=== PATIENT | female | born 1930 | race Caucasian/White ===

== ENCOUNTER 2016-04-10 21:34 | Inpatient (IN) | payer MEDICAID, MEDICARE ==
[2016-04-10] MEDS ORDERED: Sodium Chloride 0.9% 1,000 ML IV ONE (21:55)
--- NOTE | 2016-04-10 22:06 | ED Physician Chart ---
Chief Complaint/HPI - Patient Information Date Seen:: 04/10/16 Time Seen:: 21:50 Chief Complaint:: vomiting History of Present Illness:: Pt. with hx of DM, CHF, and CABG comes in with vomiting. Pt. was hypoglycemic, got insulin in field. Gluc. now 55. Allergies:: PCN Vitals:: 97.6 76 20 218.70 97% RA Historian:: EMS, Family Member Review of Systems - Review of Systems General/Constitutional: No fever, No chills Skin: No skin lesions Eyes: No loss of vision ENT: No earache, No sore throat Neck: No neck pain Cardio Vascular: No chest pain, No palpitations Pulmonary: No SOB GI: Nausea, Vomiting, No diarrhea G/U: No dysuria Endocrine: No polyuria Psychiatric: No prior psych history Hematopoietic: No bruising Neurological: No syncope Past Medical History - Past Medical History Past Medical History: HTN, DM, CAD, CHF Family History: None Social History: Non Smoker, No Alcohol Surgical History: other (CABG none others known.) Medication Reviewed:: carvdilol, hydralazine, isosorbide, lasix, clonidine, vits, meaclopramide, tramdol, insulin Family Medical History - Family Member Mother History Unknown: Yes Physical Exam - Physical Examination General/Constitutional: Awake, Well-developed, well-nourished, Alert, No distress Head: Atraumatic Eyes: Lids, conjuctiva normal, PERRL, EOMI Skin: Nl inspection ENMT: External ears, nose nl, TM canals nl, Nasal exam nl, Lips, teeth, gums nl Neck: Nontender, Full ROM w/o pain Respiratory: Nl effort/Exclusion, Clear to Auscultation, No Wheeze/Rhonchi/Rales Cardio Vascular: RRR, No murmur, gallop, rubs GI: No tenderness/rebounding/guarding : No CVA tenderness Extremities: No tenderness or effusion, Full ROM Neuro/Psych: Judgement/insight normal, No focal deficits Labs/Radiology/EKG Results - Lab Results Results: cardiomegally. Cannot r/o infiltrate, effusion R base, R CPA. EKG shows atrial paced rhythm at 60. NSSTTWC. CT per rad.: "no free fluid, no hydro, ASVD, fibroid uterus, diverticulosis, fecal impaction in Recto-sigmoid. Pt. states she had nl. BM today. Rectal exam was unremarkable. There was a little soft stool, but no impaction palpable. Hemoccult neg. CMP shows K of 2.9 and Gluc. of 55. BNP = 680 Trop is normal. Ammonia is 36 UDS is neg. WBC is 12.6 and H/H = 11.2/33.4 EtOH negligible Amylase and lipase normal. UA: RBC 0 - 2, WBC 2 - 5. Glucose 100. ED Septic Shock - . Is Septic Shock (SBP<90, OR Lactate>4 mmol\\L) present?: No Reassessment (Disposition) - Reassessment Reassessment Condition:: Unchanged - Diagnosis Diagnosis:: Dx: 1. Acute Hypoglycemic Episode 2. Acute vomiting 3. Pneumonia 4. Constipation - Aftercare/Follow up Instructions Aftercare/Follow-Up Instructions:: Counseled pt & family regarding lab results/ diagnosis & need follow up - Patient Disposition Discharge/Transfer:: Acute Care w/in this hosp Accepting Physician:: Dr. Knutson. Time Called:: 2350 Time Responded:: 02:54 Discussion with Medical Provider:: [id number] Cuellar. He was told Dr. Knutson was called. Dr. Cuellar will admit and he is giving orders. Condition at Disposition:: Improved ED Discharge Plan - Patient Disposition Admit/Discharge/Transfer: Acute Care w/in this hosp Condition at Disposition: Guarded
[2016-04-10] MEDS ORDERED: cefTRIAXone 1 GM in Sodium Chloride 0.9% 50 ML IV ONE (22:08)
[2016-04-10 23:22] LABS: % BASOPHILS 0.4 % (0.0-2.0); % EOSINOPHILS 1.3 % (0.0-5.0); % LYMPHOCYTES 11.8 % (20.0-50.0); % MONOCYTES 5.9 % (2.0-10.0); % NEUTROPHILS 80.6 % (40.0-80.0); HEMATOCRIT 33.4 % (35.0-45.0); HEMOGLOBIN 11.2 gm/dL (11.7-16.1); MEAN CELL VOLUME 83.9 fl (81-100); MEAN CORPUSCULAR HGB CONC 33.4 pg (28.0-36.0); MEAN PLATELET VOLUME 6.5 fl; NEUTROPHILE ABSOLUTE 10.1 Th/cmm (1.8-8.0); PLATELET COUNT 327 Th/cmm (150-400); RED BLOOD COUNT 3.99 Mil/cmm (3.80-5.20); RED CELL DISTRIBUTION WIDTH 12.6 % (11.5-20.0); WHITE BLOOD COUNT 12.6 Th/cmm (4.8-10.8)
[2016-04-10 23:27] LABS: AMPHETAMINE URINE NEGATIVE (NEGATIVE); BARBITURATES URINE NEGATIVE (NEGATIVE)
[2016-04-10 23:38] LABS: ALKALINE PHOSPHATASE 57 U/L (34-104); AMYLASE SERUM 86 U/L (29-103); ANION GAP 10.8 (7.0-16.0); BILIRUBIN,TOTAL 0.4 mg/dL (0.3-1.0); BUN - UREA NITROGEN 43 mg/dL (7-25); BUN/CREATININE RATIO 13.4; CALCIUM SERUM 9.5 mg/dL (8.6-10.3); CARBON DIOXIDE 30.1 mEq/L (21.0-31.0); CHLORIDE 97 mEq/L (98-107); CREATININE - SERUM 3.2 mg/dL (0.6-1.2); GLUCOSE 55 mg/dL (70-105); LIPASE 77 U/L (11-82); SGOT 18 U/L (13-39); SGPT/ALT 6 U/L (7-52); SODIUM SERUM 135 mEq/L (136-145)
[2016-04-10 23:44] LABS: POTASSIUM SERUM 2.9 mEq/L (3.5-5.1)
[2016-04-10 23:51] LABS: CREATINE KINASE MB 1.3 ng/mL (0.6-6.3)
[2016-04-10 23:51] LABS: URINE BILIRUBIN NEGATIVE (NEGATIVE); URINE COLOR YELLOW; URINE GLUCOSE (UA) 100 mg/dL (NEGATIVE); URINE KETONE NEGATIVE (NEGATIVE)
[2016-04-10 23:52] LABS: URINE BLOOD NEGATIVE (NEGATIVE); URINE PROTEIN >300 mg/dL (NEGATIVE); URINE UROBILINOGEN 0.2 E.U./dL (0.2 - 1.0)
[2016-04-10 23:54] LABS: URINE BACTERIA FEW /hpf (NONE SEEN); URINE EPITHELIAL CELLS MODERATE /lpf (FEW); URINE RBC 0-2 /hpf (0-5)
[2016-04-11 00:11] LABS: INR 0.95 (0.5-1.4); PROTHROMBIN TIME (TEST) 9.4 SECONDS (9.5-11.5)
[2016-04-11] MEDS ORDERED: Dextrose 10% 1,000 ML IV SCH (03:15)
[2016-04-11] MEDS ORDERED: Dextrose 10% 1,000 ML IV ONE (04:23)
[2016-04-11] MEDS ORDERED: INSULIN ASPART SLIDING SCALE 100 UNITS/ML UNIT SUBQ SCH (08:00)
--- NOTE | 2016-04-11 11:30 | Diagnostic Imaging Report ---
Portable chest x-ray HISTORY: Pneumonia Prior exams are not available for comparison. The heart is enlarged. Atherosclerotic calcification seen through the aorta. Cardiac pacemaker lead wires project over the right atrium and right ventricle. Density noted in the left lower hemithorax suggesting a small effusion. There is suggestion of pulmonary vascular redistribution consistent with an element of congestive heart failure. No koki pulmonary edema. IMPRESSION: 1. Cardiomegaly along with changes suggesting a degree of congestive heart failure without koki pulmonary edema. 2. Density left lower hemithorax suggesting a small pleural effusion 3. Cardiac pacemaker lead wires
--- NOTE | 2016-04-11 11:32 | Diagnostic Imaging Report ---
CT scan abdomen and pelvis without intravenous contrast HISTORY: Pain, vomiting Total DLP equals 385 CTDI equals 8.3 Axial sections were obtained from the xiphoid process down to the pubic symphysis. Limited sections through the lower chest demonstrate cardiomegaly. Artifact associated with pacemaker lead wires noted. There is a 3 mm calcified nodule within the left lower lobe of the lung consistent with old granulomatous disease. The liver exhibits a normal size and contour. A punctate calcification is seen in the left lobe most likely related to old inflammatory disease. No other focal lesions. The spleen appears normal. No focal amenities seen within the pancreas. Extensive atherosclerotic vascular calcification noted. No focal renal lesions. No hydronephrosis. The exam of the pelvis demonstrates preservation of normal fat planes. No abnormal soft tissue masses or abnormal fluid collections. There is a distended air and stool-filled lower sigmoid colon and rectum. Diverticula scattered throughout the descending and sigmoid colon. IMPRESSION: 1. Somewhat distended stool-filled lower sigmoid colon and rectum 2. Diverticulosis 3. Extensive atherosclerotic vascular changes 4. Cardiomegaly 5. Small calcified nodule within the left lower lobe of the lung consistent with old granulomatous disease
[2016-04-11] MEDS ORDERED: Azithromycin 500 MG in Sodium Chloride 0.9% 250 ML IV ONE (12:28)
[2016-04-11] MEDS ORDERED: D5-0.45NS 1,000 ML IV SCH ×2 (13:00→19:45)
[2016-04-11] MEDS: INSULIN ASPART SLIDING SCALE 100 UNITS/ML UNIT SUBQ SCH ×3 (13:12→20:30)
[2016-04-11] MEDS: cefTRIAXone 1 GM in Sodium Chloride 0.9% 50 ML IV SCH (13:23)
[2016-04-11] MEDS ORDERED: Azithromycin 250 MG in Sodium Chloride 0.9% 250 ML IV ONE (14:00)
[2016-04-11] MEDS ORDERED: Non-Formulary Item 1 EA (Carvedilol [Carvedilol] 25 MG) PO SCH (17:00)
[2016-04-11] MEDS ORDERED: Non-Formulary Item 1 EA (Clonidine Hcl [Clonidine Hcl] 0.2 MG) PO SCH (17:00)
--- NOTE | 2016-04-11 22:04 | Admit Criteria Form ---
Admit Criteria Forms - Admit Criteria Diagnosis: VOMITING Clinical Indications for Admission to Inpatient Care ( Place 'X' for any and all applicable criteria): Admission is indicated for ANY ONE of the following(1)(2)(3): [ X]I. Inpatient admission required rather than observation care because of ANY ONE of the following: [ ]i) Hemodynamic instability that is severe or persistent [ ]ii) Vomiting that is severe or persistent [ X]iii) Severe electrolyte abnormalities requiring inpatient care [ ]iv) Severe pain requiring acute inpatient management [ ]v) High fever or infection requiring inpatient admission as indicated by ANY ONE of the following(7)(8): [ ]1) Appropriate outpatient or observation care antimicrobial treatment unavailable, not effective, or not feasible [ ]2) Documented bacteremia [ ]3) Temp >104.9 degrees F (40.5 degrees C) (oral) [ ]4) Temp >103.1 degrees F (39.5 C) (oral) or <96.8 degrees F (36 C) (rectal) that does not respond to all emergency treatment measures [ ]vi) Acute renal failure [ ]vii) IV fluid to replace significant ongoing losses (greater than 3 L/m2 per day) [ ]viii) Parenteral nutrition regimen that must be implemented on inpatient basis [X ]ix) Other condition, treatment or monitoring requiring inpatient admission [ ]II. Complete or partial gastrointestinal obstruction [ ]III. Other cause of vomiting requiring hospitalization (eg, poisoning, increased intracranial pressure) [ ]IV. Vomiting due to significant metabolic derangement (eg, severe hypercalcemia, diabetic ketoacidosis) Extended stay beyond goal length of stay may be needed for(1)(4): [ ]a) Severe vomiting [ ]b) Persistent vomiting, vital sign changes, severe electrolyte imbalance , or diagnosed cause of vomiting that requires continued hospitalization (eg, gastrointestinal obstruction , increased intracranial pressure) [ ]c) Surgery to treat identified causes of vomiting (eg, bowel obstruction , intracranial process) [ ]d) Comorbid illness that requires inpatient care (eg, acute heart failure , renal failure) [ ]e) Need for inpatient endoscopy The original [facility] [employer] content created by Jorge Luis Montoya has been revised. The portions of the content which have been revised are identified through the use of italic text or in bold, and Jorge Luis Montoya has neither reviewed nor approved the modified material. All other unmodified content is copyright [facility]. Please see references footnoted in the original [facility] edition 2016 Admit Criteria Met?: Yes
--- NOTE | 2016-04-11 22:54 | History & Physical ---
REASON FOR ADMISSION: Vomiting. HISTORY OF PRESENT ILLNESS: This is an 85-year-old female with underlying history of hypertension, diabetes mellitus, coronary artery disease status post CABG, diabetic nephropathy, chronic kidney disease, status post pacemaker, who is [place] descent, was brought into the Emergency Room by family for evaluation of persistent vomiting. The patient while in the Emergency Room, diagnosed with dehydration, worsening renal failure, hypoglycemia, hypokalemia, possible pneumonia, admitted to hospital for further treatments. While I evaluated the patient, family was at the bedside. [place] nursing staff was used for interpretation. According to the family, the patient started having persistent vomiting yesterday at late afternoon. It progressively got worse, so the patient was brought to Emergency Room. The patient denies any chest pain, shortness of breath, dizziness or palpitations. There is nausea. No headache, no fever, no chills, denies any urinary symptoms. No cough or chest congestions. PAST MEDICAL HISTORY: Coronary artery disease, CHF, diabetes mellitus, hypertension, and chronic kidney disease. PAST SURGICAL HISTORY: CABG in the past. FAMILY HISTORY: Noncontributory. SOCIAL HISTORY: Lives at home with family. No reported alcohol, tobacco or street drug use. CURRENT MEDICATIONS: Currently on Coreg, Rocephin, Catapres, hydralazine, insulin, isosorbide and Zofran, vitamin B complex. REVIEW OF SYSTEMS: As per HPI, 12-point system appears negative. PHYSICAL EXAMINATION: VITAL SIGNS: Temperature 98.4, pulse 60, respirations 16 oxygen saturation 96% on room air. GENERAL APPEARANCE: The patient does not seem in acute distress. NECK: No neck stiffness. Negative for JVD. CHEST: Clear to auscultation bilaterally. HEART: S1, S2 normal. No murmur noted. ABDOMEN: Soft, nontender. No distention. Good bowel sounds noted. NEUROLOGICAL: The patient is awake, oriented. Moves all extremities. No focal deficits. EXTREMITIES: No edema noted. LABORATORY DATA: Available laboratory data has been reviewed. WBC is 12.6, hemoglobin 11.2, hematocrit 33.4, and platelet is 327. Sodium 135, potassium 2.9, BUN 43, creatinine 3.2. Sugar is 55, which subsequently improved to 142. ALT 6, troponin 0.02. BNP 680. TSH 77. Urine protein more than 300, glucose 100, ketones negative, negative for leukocyte esterase, negative nitrites. Urine drug screen negative. CT abdomen and pelvis, no significant acute findings noted. Chest x-ray small pleural effusions, negative for infiltrate or any mass noted. Cardiomegaly noted. ASSESSMENT: 1. Leukocytosis, rule out sepsis. 2. Hypoglycemia, improved. 3. Hypokalemia. 4. Rfwir-rm-yyatyfb kidney disease. 5. Dehydration. 6. Congestive heart failure. 7. Diabetes mellitus. 8. Diabetic nephropathy. 9. Coronary artery disease. 10. Hypertension. 11. Generalized debility. PLAN: The patient admitted to tele unit for close monitoring. Emperic IV antbiotics was started Nephrology was consulted blood sugar and vitals will be monitored. IV Fluids was started. Home medication was reconcilled . Symptomatic treatment will be given. Will obtain pts outpt recent lab records. Diet as tolerated. Family was updated on pt's condition and plan of care. Plan of care discussed with nursing staff. JOB# [id number] QUINTIN
[2016-04-12] MEDS: INSULIN ASPART SLIDING SCALE 100 UNITS/ML UNIT SUBQ SCH ×6 (02:27→23:17)
[2016-04-12 06:56] LABS: % BASOPHILS 0.4 % (0.0-2.0); % EOSINOPHILS 2.5 % (0.0-5.0); % LYMPHOCYTES 21.2 % (20.0-50.0); % MONOCYTES 9.1 % (2.0-10.0); % NEUTROPHILS 66.8 % (40.0-80.0); HEMATOCRIT 31.6 % (35.0-45.0); HEMOGLOBIN 10.7 gm/dL (11.7-16.1); MEAN CELL VOLUME 83.3 fl (81-100); MEAN CORPUSCULAR HEMOGLOBIN 28.3 pg (27.0-31.0); MEAN CORPUSCULAR HGB CONC 33.9 pg (28.0-36.0); MEAN PLATELET VOLUME 7.2 fl; NEUTROPHILE ABSOLUTE 5.5 Th/cmm (1.8-8.0); PLATELET COUNT 297 Th/cmm (150-400); RED BLOOD COUNT 3.79 Mil/cmm (3.80-5.20); RED CELL DISTRIBUTION WIDTH 12.9 % (11.5-20.0)
[2016-04-12 07:19] LABS: WHITE BLOOD COUNT 8.3 Th/cmm (4.8-10.8)
[2016-04-12 07:24] LABS: ANION GAP 10.6 (7.0-16.0); BUN - UREA NITROGEN 36 mg/dL (7-25); BUN/CREATININE RATIO 12.4; CALCIUM SERUM 9.1 mg/dL (8.6-10.3); CARBON DIOXIDE 28.9 mEq/L (21.0-31.0); CHLORIDE 98 mEq/L (98-107); CREATININE - SERUM 2.9 mg/dL (0.6-1.2); GLUCOSE 174 mg/dL (70-105); POTASSIUM SERUM 3.5 mEq/L (3.5-5.1); SODIUM SERUM 134 mEq/L (136-145)
[2016-04-12] MEDS: Vitamin B Complex w/Vitamin C Tab PO SCH (09:26)
--- NOTE | 2016-04-12 11:06 | Diagnostic Imaging Report ---
Portable chest x-ray HISTORY: Shortness of breath, pneumonia Compared with prior exam of 04/10/2016, the heart remains enlarged. Slight increase in the hazy bilateral infiltrates suggesting pulmonary edema. Pulmonary vascular redistribution is seen consistent with cardiac decompensation. Evidence of a minimal left pleural effusion. IMPRESSION: 1. Slight increase in hazy bilateral interstitial lung changes most likely related to pulmonary edema associated with congestive heart failure. Clinical correlation is needed.
--- NOTE | 2016-04-12 11:10 | Diagnostic Imaging Report ---
Renal ultrasound HISTORY: Abnormal renal function test The right kidney is slightly decreased in size (8.5 x 4.0 x 4.1 cm). Incomplete delineation of the renal margins. No definite focal lesions. No hydronephrosis. There is incomplete delineation of the left kidney. This appears diminished in size (8.2 x 4.3 x 4.2 cm). No definite focal lesions or hydronephrosis. No abnormality seen in the region of the urinary bladder. Post void residual equals 6.6 mL. IMPRESSION: 1. Somewhat Limited exam 2. Decreased size of the kidneys. No focal lesions or hydronephrosis.
[2016-04-12] MEDS: cefTRIAXone 1 GM in Sodium Chloride 0.9% 50 ML IV SCH (12:14)
[2016-04-13] MEDS: INSULIN ASPART SLIDING SCALE 100 UNITS/ML UNIT SUBQ SCH ×5 (04:48→21:56)
--- NOTE | 2016-04-13 06:55 | Consultation ---
REFERRING PHYSICIAN: Dr. Steve Knutson. REASON FOR CONSULTATION: Renal failure. An 85-year-old female who is Nigerien speaking with a past medical history of high blood pressure, diabetes, coronary artery disease, status post CABG, diabetic nephropathy, she also has a pacemaker. She was brought to the Emergency Room because of intractable vomiting and diagnosed with dehydration, worsening kidney failure, hypoglycemia, hypokalemia. The patient also was noted to have possible pneumonia. She was admitted to the hospital. The patient was started on broad-spectrum antibiotics and IV fluid. According to the family, her symptoms have become progressively worse. PAST MEDICAL HISTORY: Coronary artery disease, congestive heart failure, diabetes, hypertension and chronic kidney disease. PAST SURGICAL HISTORY: CABG and pacemaker. FAMILY HISTORY: Noncontributory. SOCIAL HISTORY: Negative for smoking, alcohol, drugs. REVIEW OF SYSTEMS: Unremarkable. LABORATORY DATA: Her laboratory shows her white count 8.3, H and H of 10.7 and 31.6, platelets 297, serum sodium 134, potassium is 3.5, BUN is 36, creatinine 2.9, BNP is 690. Her urinalysis was not done at this time. CURRENT MEDICATIONS: Weikert, Coreg, Rocephin, clonidine, Vasotec, hydralazine, Imdur, Zofran, vitamin B and C. PHYSICAL EXAMINATION: VITAL SIGNS: Blood pressure is 197/90, heart rate 70, temperature is afebrile. HEENT: Anicteric sclerae. NECK: Supple. No JVD. LUNGS: Clear to auscultation bilaterally. CARDIOVASCULAR: Regular rate and rhythm. ABDOMEN: Soft, nontender, nondistended. EXTREMITIES: No edema, no cyanosis. NEUROLOGIC: The patient is awake, alert, oriented x 3. The patient also had a chest x-ray which showed slight increase ____, bilateral interstitial changes most likely related to pulmonary edema associated with congestive heart failure. Clinical correlation is required. ASSESSMENT: This is an 85-year-old female who came in with nausea and vomiting, had acute renal failure because of progressively worsening dehydration. She now has renal function slowly improving, but she continues to have chronic kidney disease and chest x-ray shows some elements of congestive heart failure. IV fluids that has been stopped. We will monitor her renal function over the next 24 hours. She is drinking and eating okay. We will hold off on IV fluid because chest x-ray shows mild congestive heart failure. We will reassess in the morning. [facility]# [id number]
[2016-04-13 06:57] LABS: ALKALINE PHOSPHATASE 41 U/L (34-104); ANION GAP 10.2 (7.0-16.0); BILIRUBIN,TOTAL 0.4 mg/dL (0.3-1.0); BUN - UREA NITROGEN 42 mg/dL (7-25); BUN/CREATININE RATIO 11.7; CALCIUM SERUM 8.6 mg/dL (8.6-10.3); CARBON DIOXIDE 27.3 mEq/L (21.0-31.0); CHLORIDE 100 mEq/L (98-107); CREATININE - SERUM 3.6 mg/dL (0.6-1.2); GLUCOSE 115 mg/dL (70-105); POTASSIUM SERUM 3.5 mEq/L (3.5-5.1); SGOT 14 U/L (13-39); SGPT/ALT 5 U/L (7-52); SODIUM SERUM 134 mEq/L (136-145)
[2016-04-13] MEDS: Vitamin B Complex w/Vitamin C Tab PO SCH (09:02)
[2016-04-13] MEDS: Hydrocodone/APAP 5mg/325mg Tab PO PRN (09:02)
[2016-04-13] MEDS ORDERED: Sodium Chloride 0.9% 1,000 ML IV SCH (13:09)
[2016-04-14] MEDS: INSULIN ASPART SLIDING SCALE 100 UNITS/ML UNIT SUBQ SCH ×6 (01:05→21:09)
[2016-04-14 06:40] LABS: ANION GAP 12.5 (7.0-16.0); BUN - UREA NITROGEN 42 mg/dL (7-25); BUN/CREATININE RATIO 11.7; CALCIUM SERUM 8.7 mg/dL (8.6-10.3); CARBON DIOXIDE 24.3 mEq/L (21.0-31.0); CHLORIDE 103 mEq/L (98-107); CREATININE - SERUM 3.6 mg/dL (0.6-1.2); GLUCOSE 138 mg/dL (70-105); POTASSIUM SERUM 3.8 mEq/L (3.5-5.1); SODIUM SERUM 136 mEq/L (136-145)
[2016-04-14] MEDS: Vitamin B Complex w/Vitamin C Tab PO SCH (08:37)
[2016-04-14] MEDS: Hydrocodone/APAP 5mg/325mg Tab PO PRN (08:37)
[2016-04-14] MEDS ORDERED: Sodium Chloride 0.45% 1,000 ML IV SCH ×2 (15:36→16:00)
--- NOTE | 2016-04-14 15:47 | General Progress Note ---
Subjective - Review of Systems Service Date: 04/14/16 Subjective: Patient seen and examined Family was at the bedside Patient c/o nausea and epigastric abd pain No vomiting or fever or chills or urinary symptoms reported Awaiting GI eval Objective - Results Result Diagrams: 04/12/16 05:36 04/14/16 05:54 Recent Labs: Laboratory Last Values WBC 8.3 Th/cmm (4.8-10.8) D 04/12/16 05:36 RBC 3.79 Mil/cmm (3.80-5.20) L 04/12/16 05:36 Hgb 10.7 gm/dL (11.7-16.1) L 04/12/16 05:36 Hct 31.6 % (35.0-45.0) L 04/12/16 05:36 MCV 83.3 fl (81-100) 04/12/16 05:36 MCH 28.3 pg (27.0-31.0) 04/12/16 05:36 MCHC Differential 33.9 pg (28.0-36.0) 04/12/16 05:36 RDW 12.9 % (11.5-20.0) 04/12/16 05:36 Plt Count 297 Th/cmm (150-400) 04/12/16 05:36 MPV 7.2 fl 04/12/16 05:36 Neutrophils % 66.8 % (40.0-80.0) 04/12/16 05:36 Lymphocytes % 21.2 % (20.0-50.0) 04/12/16 05:36 Monocytes % 9.1 % (2.0-10.0) 04/12/16 05:36 Eosinophils % 2.5 % (0.0-5.0) 04/12/16 05:36 Basophils % 0.4 % (0.0-2.0) 04/12/16 05:36 PT 9.4 SECONDS (9.5-11.5) L 04/10/16 23:03 INR 0.95 (0.5-1.4) 04/10/16 23:03 PTT (Actin FS) 24.0 SECONDS (26.0-38.0) L 04/10/16 23:03 Sodium 136 mEq/L (136-145) 04/14/16 05:54 Potassium 3.8 mEq/L (3.5-5.1) 04/14/16 05:54 Chloride 103 mEq/L (98-107) 04/14/16 05:54 Carbon Dioxide 24.3 mEq/L (21.0-31.0) 04/14/16 05:54 Anion Gap 12.5 (7.0-16.0) 04/14/16 05:54 BUN 42 mg/dL (7-25) H 04/14/16 05:54 Creatinine 3.6 mg/dL (0.6-1.2) H 04/14/16 05:54 Est GFR ( Amer) TNP 04/14/16 05:54 Est GFR (Non-Af Amer) TNP 04/14/16 05:54 BUN/Creatinine Ratio 11.7 04/14/16 05:54 Glucose 138 mg/dL (70-105) H 04/14/16 05:54 POC Glucose 174 MG/DL (70 - 105) H 04/14/16 11:54 Calcium 8.7 mg/dL (8.6-10.3) 04/14/16 05:54 Total Bilirubin 0.4 mg/dL (0.3-1.0) 04/13/16 06:01 AST 14 U/L (13-39) 04/13/16 06:01 ALT 5 U/L (7-52) L 04/13/16 06:01 Alkaline Phosphatase 41 U/L (34-104) 04/13/16 06:01 Ammonia 36 umol/L (16-53) 04/10/16 23:03 Creatine Kinase 34 U/L (30-223) 04/10/16 23:03 CK-MB (CK-2) 1.3 ng/mL (0.6-6.3) 04/10/16 23:03 Troponin I 0.02 ng/mL (0.01-0.05) 04/10/16 23:03 B-Natriuretic Peptide 690.0 pg/mL (5.0-100.0) H 04/12/16 05:36 Total Protein 5.6 gm/dL (6.0-8.3) L 04/13/16 06:01 Albumin 2.8 gm/dL (3.7-5.3) L 04/13/16 06:01 Globulin 2.8 gm/dL 04/13/16 06:01 Albumin/Globulin Ratio 1.0 (1.0-1.8) 04/13/16 06:01 Amylase 86 U/L (29-103) 04/10/16 23:03 Lipase 77 U/L (11-82) 04/10/16 23:03 TSH 1.11 uIU/ml (0.34-5.60) 04/10/16 23:03 Urine Source CLEAN C 04/10/16 22:50 Urine Color YELLOW 04/10/16 22:50 Urine Clarity CLEAR (CLEAR) 04/10/16 22:50 Urine pH 7.0 04/10/16 22:50 Ur Specific [place] 1.025 (1.005-1.030) 04/10/16 22:50 Urine Protein >300 mg/dL (NEGATIVE) H 04/10/16 22:50 Urine Glucose (UA) 100 mg/dL (NEGATIVE) H 04/10/16 22:50 Urine Ketones NEGATIVE mg/dL (NEGATIVE) 04/10/16 22:50 Urine Blood NEGATIVE (NEGATIVE) 04/10/16 22:50 Urine Nitrate NEGATIVE (NEGATIVE) 04/10/16 22:50 Urine Bilirubin NEGATIVE (NEGATIVE) 04/10/16 22:50 Urine Urobilinogen 0.2 E.U./dL (0.2 - 1.0) 04/10/16 22:50 Ur Leukocyte Esterase NEGATIVE (NEGATIVE) 04/10/16 22:50 Urine RBC 0-2 /hpf (0-5) 04/10/16 22:50 Urine WBC 2-5 /hpf (0-5) 04/10/16 22:50 Ur Epithelial Cells MODERATE /lpf (FEW) 04/10/16 22:50 Urine Bacteria FEW /hpf (NONE SEEN) 04/10/16 22:50 Urine Opiates Screen NEGATIVE (NEGATIVE) 04/10/16 22:50 Ur Barbiturates Screen NEGATIVE (NEGATIVE) 04/10/16 22:50 Ur Phencyclidine Scrn NEGATIVE (NEGATIVE) 04/10/16 22:50 Amphetamines Screen NEGATIVE (NEGATIVE) 04/10/16 22:50 U Methamphetamines Scrn NEGATIVE (NEGATIVE) 04/10/16 22:50 U Benzodiazepines Scrn NEGATIVE (NEGATIVE) 04/10/16 22:50 U Cocaine Metab Screen NEGATIVE (NEGATIVE) 04/10/16 22:50 U Cannabinoids Screen NEGATIVE (NEGATIVE) 04/10/16 22:50 Ethyl Alcohol < 10 mg/dL (0-10) 04/10/16 23:03 - Physical Exam Vitals and I&O: Vital Signs Temp 98.8 F 04/14/16 11:56 Pulse 72 04/14/16 12:26 Resp 18 04/14/16 11:56 BP 187/73 04/14/16 12:26 Pulse Ox 95 04/14/16 11:56 Intake & Output 04/13/16 04/14/16 04/14/16 18:59 06:59 18:59 Intake Total 400 1360 Balance 400 1360 Intake: Intake, IV Amount 1000 Sodium Chloride 0.9% 1, 1000 000 ml @ 100 mls/hr IV . Q10H [facility] Rx#:[id number] Oral 400 360 Other: # Voids 4 4 # Bowel Movements 1 0 Stool Characteristics Soft Formed Active Medications: Current Medications Acetaminophen/Hydrocodone Bitart ([place] 5mg/325mg) 1 tab PO Q6H PRN PRN Reason: pain Stop: 06/11/16 06:29 Last Admin: 04/14/16 08:37 Dose: 1 tab Carvedilol (Coreg) 25 mg PO BID [facility] Stop: 06/10/16 16:59 Last Admin: 04/14/16 08:37 Dose: 25 mg Clonidine HCl (Catapres) 0.2 mg PO BID [facility] Stop: 06/10/16 16:59 Last Admin: 04/14/16 12:17 Dose: Not Given Enalaprilat (Vasotec) 2.5 mg IVP Q6HR PRN PRN Reason: HTN Stop: 06/11/16 17:59 Last Admin: 04/14/16 04:04 Dose: 2.5 mg Hydralazine HCl (Apresoline) 50 mg PO Q6HR [facility] Stop: 06/10/16 17:59 Last Admin: 04/14/16 12:26 Dose: 50 mg Sodium Chloride (Nacl 0.45%) 1,000 mls @ 70 mls/hr IV .[id number] [facility] Stop: 06/13/16 15:59 Insulin Aspart (Novolog Insulin Sliding Scale) 0 units SUBQ Q4HR GAY PRN Reason: Protocol Stop: 06/10/16 07:59 Last Admin: 04/14/16 12:00 Dose: Not Given Isosorbide Mononitrate (Imdur) 30 mg PO BID [facility] Stop: 06/10/16 16:59 Last Admin: 04/14/16 08:38 Dose: 30 mg Ondansetron HCl (Zofran) 4 mg IV Q6H PRN PRN Reason: Nausea / Vomiting Stop: 06/10/16 12:00 Last Admin: 04/12/16 09:24 Dose: 4 mg Pantoprazole Sodium (Protonix) 40 mg IVP DAILY [facility] Stop: 06/13/16 12:14 Last Admin: 04/14/16 12:26 Dose: 40 mg Vitamin B Complex/Vit C/Folic Acid (Vitamin B Complex W/Vitamin C) 1 tab PO DAILY [facility] Stop: 06/11/16 08:59 Last Admin: 04/14/16 08:37 Dose: 1 tab Cardiovascular: Normal S1, Normal S2 Lungs: Clear to auscultation Abdomen: Soft, no Tender Extremities: Edema (mild) Assessment/Plan - Assessment Assessment: Acute on CKD Dehydration DM II Abd pain HTN Pace maker in place - Plan Plan: Awaiting GI consult PPI Case discussed with nephrology ( Baseline Creat 3-3.2) Nurse reported pts' HR went down to 40's Pt has pacemaker Family was instructed to bring pacemaker info so we can contact the company to come out and check the pacemaker Monitor blood sugar 1/2 NS IV Fluids Monitor BP Plan of care discussed with pt and family and RN at the bedside in details
--- NOTE | 2016-04-14 20:37 | Consultation ---
GASTROENTEROLOGY CONSULTATION REQUESTING PHYSICIAN: Dr. Steve Knutson. REASON FOR CONSULTATION: Nausea and vomiting for 2 weeks. HISTORY OF PRESENT ILLNESS: This 85-year-old female with history of diabetes mellitus, hypertension, CKD, CHF admitted for 2-week history of progressively worsening nausea and vomiting. She has been here for the last 4 days. Given her refractory nausea and vomiting, we were asked to see the patient. She had an upper endoscopy and possibly colonoscopy recently about four months ago at [facility]. The results of these the family is not aware of. The patient denies abdominal pain. She does have baseline constipation. PAST MEDICAL HISTORY: As above. MEDICATIONS: Here are Saline, carvedilol, enalapril as needed, hydralazine, insulin sliding scale, Imdur, Zofran, Protonix 40 mg IV daily and vitamin B complex with vitamin C. ALLERGIES: To penicillin. SOCIAL HISTORY: No recent tobacco, alcohol or drugs. FAMILY HISTORY: Noncontributory. REVIEW OF SYSTEMS: A comprehensive 12-point review of system was conducted and is only positive for those signs and symptoms present in the history of present illness. PHYSICAL EXAMINATION: VITAL SIGNS: Temperature of 98.0, blood pressure is 166/48, pulse of 64, respirations 18, O2 sat is 95% on room air. GENERAL: The patient is a well-developed, well-nourished, obese female in no acute distress. HEENT: Sclerae nonicteric. Oropharynx is clear. CARDIOVASCULAR: Regular rate and rhythm. LUNGS: Clear to auscultation bilaterally. ABDOMEN: Soft, nontender, nondistended, normoactive bowel sounds. EXTREMITIES: No clubbing, cyanosis or edema. RECTAL: Deferred. LABORATORY DATA AND IMAGING: WBC is 8.3, hemoglobin 10.7, platelet count is 297. INR 0.95, creatinine 3.6. Liver enzymes are normal. Ammonia is normal. Albumin is 2.8. Amylase and lipase normal. Urinalysis shows proteinuria, otherwise, negative. Urine toxicology screen and alcohol level are negative. ASSESSMENT: 1. Nausea and vomiting for two weeks' duration. Rule out GERD versus diabetic gastroparesis versus constipation or ileus. 2. History of recent endoscopy and possibly colonoscopy at [facility] about 4 months ago with unknown results. Workup at that time was for upper GI bleed. 3. History of diabetes mellitus, hypertension, chronic kidney disease and CHF. RECOMMENDATIONS: 1. Check gastric emptying study. 2. Check old endoscopy and colonoscopy reports from [facility]. 3. Protonix. 4. Zofran. 5. Consider Reglan if gastric emptying study is positive for gastroparesis. 6. Clear liquid diet; gradually advanced as tolerated. Thank you Dr. Steve Knutson for involving us in the care of your patient. If you have any further questions, please call us. JOB# [id number]
[2016-04-15 06:27] LABS: % BASOPHILS 0.5 % (0.0-2.0); % EOSINOPHILS 1.7 % (0.0-5.0); % LYMPHOCYTES 22.1 % (20.0-50.0); % MONOCYTES 9.1 % (2.0-10.0); % NEUTROPHILS 66.6 % (40.0-80.0); HEMATOCRIT 28.9 % (35.0-45.0); HEMOGLOBIN 9.6 gm/dL (11.7-16.1); MEAN CELL VOLUME 84.9 fl (81-100); MEAN CORPUSCULAR HEMOGLOBIN 28.1 pg (27.0-31.0); MEAN CORPUSCULAR HGB CONC 33.1 pg (28.0-36.0); MEAN PLATELET VOLUME 7.3 fl; PLATELET COUNT 266 Th/cmm (150-400); RED CELL DISTRIBUTION WIDTH 12.9 % (11.5-20.0); WHITE BLOOD COUNT 7.4 Th/cmm (4.8-10.8)
[2016-04-15] MEDS: INSULIN ASPART SLIDING SCALE 100 UNITS/ML UNIT SUBQ SCH ×4 (06:41→21:49)
[2016-04-15 07:14] LABS: ANION GAP 11.3 (7.0-16.0); BUN - UREA NITROGEN 44 mg/dL (7-25); BUN/CREATININE RATIO 11.3; CALCIUM SERUM 8.8 mg/dL (8.6-10.3); CARBON DIOXIDE 23.8 mEq/L (21.0-31.0); CHLORIDE 105 mEq/L (98-107); CREATININE - SERUM 3.9 mg/dL (0.6-1.2); GLUCOSE 145 mg/dL (70-105); POTASSIUM SERUM 4.1 mEq/L (3.5-5.1); SODIUM SERUM 136 mEq/L (136-145)
[2016-04-15] MEDS: Vitamin B Complex w/Vitamin C Tab PO SCH (08:40)
--- NOTE | 2016-04-15 12:14 | Diagnostic Imaging Report ---
Portable chest x-ray HISTORY: Cough Compared with the prior exam of 04/12/2016, the heart is enlarged. Atherosclerotic calcination seen in the aorta. There is haziness of the lower interstitial lung markings. A degree of congestive heart failure cannot be excluded. No discrete focal processes are seen. IMPRESSION: 1. Cardiomegaly along with changes that may be associated with a degree of congestive heart failure. Clinical correlation is needed.
[2016-04-15] MEDS: Lactulose 10 Gm/15 mL 30mL UDC PO SCH (21:50)
[2016-04-16 05:32] LABS: ANION GAP 9.6 (7.0-16.0); BUN - UREA NITROGEN 42 mg/dL (7-25); BUN/CREATININE RATIO 10.2; CALCIUM SERUM 8.9 mg/dL (8.6-10.3); CARBON DIOXIDE 24.6 mEq/L (21.0-31.0); CHLORIDE 106 mEq/L (98-107); GLUCOSE 159 mg/dL (70-105); POTASSIUM SERUM 4.2 mEq/L (3.5-5.1); SODIUM SERUM 136 mEq/L (136-145)
[2016-04-16 05:45] LABS: CREATININE - SERUM 4.1 mg/dL (0.6-1.2)
[2016-04-16] MEDS: INSULIN ASPART SLIDING SCALE 100 UNITS/ML UNIT SUBQ SCH ×3 (06:51→17:27)
[2016-04-16] MEDS: Vitamin B Complex w/Vitamin C Tab PO SCH (09:13)
[2016-04-16] MEDS: Lactulose 10 Gm/15 mL 30mL UDC PO SCH (10:41)
--- NOTE | 2016-04-16 15:05 | Diagnostic Imaging Report ---
Radionuclide gastric emptying scan HISTORY: Gastroparesis 1.0 mCi technetium sulfur colloid mixed with scrambled legs administered orally. The exam demonstrates 55% retention of nuclide at 120 minutes. This is within normal limits. IMPRESSION: 1. 55% retention of nuclide at 120 minutes (within normal limits)
--- NOTE | 2016-07-11 03:32 | Discharge Summary ---
FINAL DIAGNOSES: 1. Worsening renal failure. 2. Congestive heart failure. 3. Dehydration. 4. Hypertension. 5. Diabetes mellitus. 6. Coronary artery disease. 7. Hypokalemia. 8. Hypoglycemia. 9. Abdominal pain. 10. Bradycardia, status post pacemaker. 11. Viral illness. 12. Generalized debility. HOSPITAL COURSE: This is an 85-year-old female admitted for evaluation of the dehydrations, abdominal pain, nausea, vomiting and worsening renal failure, nephrology was consulted. The patient was given gentle hydrations. The patient's renal function was closely monitored. She appeared to have a worsening renal failure. The patient had underlying history of a CKD IV. He was being followed by the plant health manager. The patient was given symptomatic treatment for nausea, vomiting, abdominal pain, GI was consulted. The patient underwent a gastric emptying study, which was negative for any diabetic gastroparesis. Discussed with the family members on several occasions regarding need for initiation of dialysis, also nephrology recommended the same. Family stated that they would like to follow with their outpatient nephrology for further decision on the dialysis plan. Plan discussed with the family member regarding risk related to untreated end-stage renal disease. Overall, stay was rather uneventful. DISCHARGE CONDITION: Stable. DISCHARGE MEDICATIONS: Please see medical reconciliation list. DISCHARGE INSTRUCTIONS: To be followed by primary MD and a plant health manager as an outpatient. The patient is advised and family is advised if any re-worsening of the symptoms, needs to come back to Emergency Room. [facility] [place]# [id number]
== END 2016-04-16 20:10 | disposition home or self-care (01) | DRG 682 ==
LOC: ER 21:34 → MSI 04-11 03:00 → TELE 04-12 20:00
PROVIDERS: ADMIT Family Medicine; ATTEND Family Medicine
DX: N17.9 Acute kidney failure, unspecified (principal); J18.9 Pneumonia, unspecified organism; E11.21 Type 2 diabetes mellitus with diabetic nephropathy; I13.0 Hypertensive heart and chronic kidney disease with heart failure and stage 1 through stage 4 chronic kidney disease, or unspecified chronic kidney disease; E11.649 Type 2 diabetes mellitus with hypoglycemia without coma; I50.20 Unspecified systolic (congestive) heart failure; I25.10 Atherosclerotic heart disease of native coronary artery without angina pectoris; E87.6 Hypokalemia; E11.65 Type 2 diabetes mellitus with hyperglycemia; E86.0 Dehydration; K59.00 Constipation, unspecified; E11.22 Type 2 diabetes mellitus with diabetic chronic kidney disease; K21.9 Gastro-esophageal reflux disease without esophagitis; E11.43 Type 2 diabetes mellitus with diabetic autonomic (poly)neuropathy; K31.84 Gastroparesis; N18.4 Chronic kidney disease, stage 4 (severe); Z95.1 Presence of aortocoronary bypass graft; Z95.0 Presence of cardiac pacemaker; Z79.4 Long term (current) use of insulin; Z88.0 Allergy status to penicillin
CPT/HCPCS: 36415-UA; 71010-TC; 76770-TC; 78264-TC; 80048-TC; 80053-TC; 80320-TC; 81001-TC; 82140-TC; 82150-TC; 82550-TC; 82553; 82948-90; 83690-TC; 83880-TC; 84443-TC; 84484-TC; 85025-TC; 85610-TC; 85730-TC; 90799; 93005; A9541; C9113; J0456; J0696; J1815; J2405; J7030; Z7610